=== PATIENT | male | born 1985 | race Caucasian/White ===

== ENCOUNTER 2025-03-24 16:39 | Emergency (ER) | payer OTHER, SELFPAY ==
[2025-03-24 16:44] VITALS: BP 160/102
[2025-03-24 17:14] LABS: INR 0.99; PT 13.6 Sec (11.4-14.6)
[2025-03-24 17:27] LABS: Troponin I < 0.012 ng/ml
[2025-03-24 17:33] LABS: Blood Urea Nitrogen 12 mg/dl (9-20); Calcium 10.0 mg/dl (8.4-10.2); Carbon Dioxide 22 mmol/L (22-30); Chloride 104 mmol/L (98-107); Glucose 108 mg/dl (70-99); Sodium 132 mmol/L (135-145); eGFR > 60.00
[2025-03-24 17:35] LABS: Hematocrit 45.6 % (39.0-52.0); Hemoglobin 16.7 g/dL (13.0-18.0); Mean Corp Hgb Conc. 36.6 g/dL (33.0-37.0); Mean Corpuscular Volume 82.2 fL (80.0-94.0); Nucleated Red Blood Cells % 0 % (-); Red Cell Dist. Width 11.7 % (11.5-14.5)
--- NOTE | 2025-03-24 18:47 | ED.GENMED ---
History of Present Illness
General
Chief Complaint: Heart Rate Problem
Source: patient
Exam Limitations: none
Time Seen by Provider: 03/24/25 18:35
Nursing documentation reviewed up to this point in time: agreed with
History of Present Illness
History of Present Illness:
Patient to the emergency department for evaluation of elevated heart rate, low pulse ox. He states he was seen by his PCP today for routine visit at time of visit his pulse ox was noted to be 95% on room air with heart rate in the low teens. He
reports intermittent calf pain at night. No swelling to either leg. He has no history of blood clots. He was advised by his family doctor to come to the emergency department for further evaluation. On arrival to ED he is awake alert and oriented
pulse ox is 97% on room air.
Past History
Past History
ED Past Medical History: None
ED Past Surgical History: None
Social History
Tobacco: Smoker
Alcohol: Daily
Drug: None
Living: with family
Family History
Family History: Diabetes and Asthma
Review of Systems
Review of Systems
All Other Systems: ROS reviewed and negative except as documented in HPI and ROS
Constitutional: Reports no symptoms
EENT: Reports no symptoms
Respiratory: Reports no symptoms
Cardiac: Reports other (Elevated heart rate today.)
ABD/GI: Reports no symptoms
: Reports no symptoms
Musculoskeletal: Reports other (Intermittent calf tenderness at night.)
Skin: Reports no symptoms
Neurological: Reports no symptoms
Psychiatric: Reports no symptoms
Phy Exam
General Physical Exam
General Presentation: well appearing and no apparent distress
General age: appears stated age
General Skin: warm and dry
General Habitus: normal
Cardiovascular Exam
Cardiovascular Exam: regular rate/rhythm
Pulmonary Exam
Pulmonary Exam: lungs clear and no respiratory distress
Gastrointestinal Exam
Gastrointestinal Exam: non tender and soft
Musculoskeletal Exam
Musculoskeletal Exam: full ROM and neuro vasc intact
Skin Exam
Skin Exam: normal color, warm/dry and no rash
Psychiatric Exam
Psychiatric Exam: normal mood/affect
Course
Orders/Labs/Results
Orders:
Orders
03/24/25 16:48
EKG [Electrocardiogram (*1)] Urgent
Reason for Study: Tachycardia
03/24/25 16:49
EKG- Treatment ONCE
03/24/25 16:53
Basic Metabolic Panel Urgent
CBC/With Diff [Complete Blood Count/With Diff] Urgent
PT/INR [Prothrombin Time] Urgent
Troponin I Urgent
03/24/25 18:43
US Periph Venous LOWER Ext Donnie Urgent
Comment:
Reason For Exam: intermittent calf pain, tachycardia
03/24/25 20:10
D-Dimer Urgent
Abnormal Lab Results
03/24/25
16:53
Abs Immat Gran (auto) 0.1 H 10^3/uL
(0-0.05)
Absolute Monos (auto) 0.7 H 10^3/uL
(0.1-0.6)
Immature Gran % 1.3 H %
(0-0.5)
Sodium 132 L mmol/L
(135-145)
Glucose 108 H mg/dl
(70-99)
03/24/25 16:53
03/24/25 16:53
Vital Signs
Initial and Last Documented VS:
Initial Vital Signs
Temp Pulse Resp BP Pulse Ox
98.2 F 105 16 160/102 98
03/24/25 16:44 03/24/25 16:44 03/24/25 16:44 03/24/25 16:44 03/24/25 16:44
Last Documented Vital Signs
Temp Pulse Resp BP Pulse Ox
98.2 F 101 18 147/95 98
03/24/25 16:44 03/24/25 20:54 03/24/25 20:54 03/24/25 20:54 03/24/25 20:54
*Pulse Oximetry
SaO2: 97
Oxygen Mode of Delivery: Room air
Patient hypoxic: no
*Critical Care Note
Total Time (30-74mins, 75-104mins- exclusive of procedures): Not Applicable
Update Note
Update Note:
Patient to the emergency department for evaluation of elevated heart rate and a low pulse ox earlier today. He was at a routine visit with his primary care provider when the symptoms were noted. He was advised to come to the emergency department
for evaluation to rule out blood clots. He has no history of DVT/PE. He denies any chest pain or shortness of breath. Reports occasional calf tenderness in the evening but no redness or swelling. Vital signs are stable heart rate 101 on exam.
Pulse ox 98% on room air. Labs reviewed WBC 7.8, hemoglobin 16.7, hematocrit 45.6. Sodium 132. Troponin is negative D-dimer negative at 0.29. EKG shows normal sinus rhythm. Bilateral peripheral ultrasounds were completed on lower extremities.
No evidence of DVT. Doubtful for pulmonary embolism. Will discharge home. Patient will follow-up with his family doctor. He was given instructions on signs and symptoms for emergency to return to the emergency department he is agreeable to this
plan.
ED Attending Note
-
Portions of this chart may have been created with voice recognition software.� Occasional wrong word or��sound alike� substitutions may have occurred due to the inherent limitations of voice recognition software.
Discharge Plan
Departure
Patient Disposition: Home (Routine Discharge)
Date of Disposition: 03/24/25
Time of Disposition: 20:46
Patient with high blood pressure during this ER visit?: No
Condition: Good
Covid-19: Not Applicable
Discharge Problem:
Tachycardia
Instructions: Tachycardia
Prescriptions:
No Action
doxycycline hyclate 100 mg capsule
100 mg PO BID 10 Days Qty: 20 0RF
Referrals:
Jean Powers DO [Family Provider, Family Practice] - Follow up in 2-3 days
Activity Restrictions/Additional Instructions:
Return to the emergency department for any changes in/worsening of your symptoms.
Interventions
Interventions:
*Risk Screen - Suicide Last Done: 03/24/25 16:44
*General Assessment Last Done: 03/24/25 18:28
*Neglect/Abuse Screening Last Done: 03/24/25 16:44
*ED- Fall Risk Assessment Last Done: 03/24/25 18:28
*ED COVID-19 Vaccine History Last Done: 03/24/25 18:28
*ED Influenza Vaccine History Last Done: 03/24/25 18:28
*Nursing Disposition Last Done: 03/24/25 20:55
ED- Cardiac Assessment Last Done: 03/24/25 19:14
ED- Pulmonary Assessment Last Done: 03/24/25 19:14
Discharge Date and Time
Discharge Date/Time: 03/24/25 20:55
Print Language: ICELANDIC
[2025-03-24 20:31] LABS: D-Dimer 0.29 ug/mlFEU (0.00-0.50)
[2025-03-24 20:54] VITALS: BP 147/95
== END 2025-03-24 20:55 | disposition home or self-care (01) ==
LOC: EMR 16:39
PROVIDERS: EMERGENCY PHYSICIAN Student in an Organized Health Care Education/Training Program; FAMILY PHYSICIAN Family Medicine
DX: R00.0 Tachycardia, unspecified (principal); F17.200 Nicotine dependence, unspecified, uncomplicated; M79.661 Pain in right lower leg
CPT/HCPCS: 99284; 80048; 84484; 85025; 85379; 85610; 93005; 93970

== ENCOUNTER → 2025-03-29 13:28 | Outpatient (REF) | payer OTHER, SELFPAY | LOC: DHSLP 13:28 | PROVIDERS: ATTENDING PHYSICIAN Family Medicine | DX: G47.33 Obstructive sleep apnea (adult) (pediatric) (principal); R06.83 Snoring | CPT/HCPCS: 95800 ==

== ENCOUNTER → 2025-04-09 13:55 | Outpatient (REF) | payer OTHER, SELFPAY ==
[2025-04-09 15:57] LABS: Urine Character Clear (Clear)
[2025-04-09 16:52] LABS: Urine Red Blood Cell 0-2 /HPF (0-2); Urine Squamous Cell 0-2 /LPF (Few); Urine White Cell 0-2 /HPF (0-5)
== END ==
LOC: RAD 13:55
PROVIDERS: ATTENDING PHYSICIAN Family Medicine
DX: N50.819 Testicular pain, unspecified (principal); R10.20 Pelvic and perineal pain unspecified side
CPT/HCPCS: 76770; 76870; 81003; 81015; 93976